=== PATIENT | male | born 1950 | race African-American/Black ===

== ENCOUNTER 2018-02-06 11:58 | Observation (INO) ==
[2018-02-06] MEDS ORDERED: NITROGLYCERIN 2% OINT 1 INCH/GM PACK TOP STA (12:19)
[2018-02-06] MEDS ORDERED: ENOXAPARIN 100 MG/ML SYRINGE SUBCUT STA (12:19)
[2018-02-06 12:42] LABS: Basophils # 0.1 10*3/uL (0.0-0.2); Basophils % 0.6 % (0.0-0.8); Eosinophils # 0.2 10*3/uL (0.0-0.87); Eosinophils % 2.2 % (0.00-10.9); Hematocrit 41.7 VOL% (42.0-52.0); Hemoglobin 14.3 GM/DL (14.0-18.0); Immature Granulocytes % 0.3 %; Immature Granulocytes Absolute 0.03 #; Lymphocytes # 1.7 10*3/uL (1.4-4.0); Lymphocytes % 18.6 % (21.2-54.2); Mean Corpuscular HGB Conc 34.3 GM/DL (32-36); Mean Corpuscular Hemoglobin 33 PG (27-34); Mean Corpuscular Volume 95.6 FL (87-102); Mean Platelet Volume 9.9 FL (9.6-12.0); Monocytes # 0.5 10*3/uL (0.11-0.8); Monocytes % 5.4 % (1.7-12.7); Neutrophils # 6.8 10*3/uL (1.4-7.4); Neutrophils % 72.9 % (38.7-73.9); Platelet Count 223 T/CUMM (130-400); Red Blood Count 4.36 MC/CUMM (3.8-5.5); Red Cell Distribution Width 12.1 % (9.3-17.3); White Blood Count 9.3 T/CUMM (4-12)
[2018-02-06 12:50] LABS: PT Patient Result 10.8 SECS; Partial Thromboplastin Time 28.2 SECS (0-40)
[2018-02-06 13:04] LABS: Alanine Aminotransferase 24 U/L (16-61); Albumin 3.4 G/DL (3.4-5.0); Alkaline Phosphatase 116 U/L (45-117); Aspartate Amino Transferase 19 U/L (0-37); Blood Urea Nitrogen 12 MG/DL (7-18); Calcium 8.8 MG/DL (8.5-10.1); Glucose 144 MG/DL (74-106); Osmolality,Calculated 285.1 MOS/KG (273-304); Potassium 3.5 MMOL/L (3.5-5.1); Sodium 142 MMOL/L (136-145); Total Protein 6.7 G/DL (6.4-8.3)
[2018-02-06] MEDS ORDERED: FUROSEMIDE 40 MG/4 ML VIAL IV STA (14:01)
[2018-02-06] MEDS ORDERED: ONDANSETRON 4 MG/2 ML VIAL IV PRN (14:32)
[2018-02-06] MEDS ORDERED: INSULIN LISPRO 100 UNIT/ML SUBCUT ONE (14:32)
[2018-02-06] MEDS ORDERED: MORPHINE 4 MG/1 ML VIAL IV PRN (14:32)
[2018-02-06] MEDS ORDERED: ACETAMINOPHEN 325 MG TABLET PO PRN (14:32)
[2018-02-06] MEDS ORDERED: POLYETHYLENE GLYCOL POWDER 17 GM PACK PO PRN (14:38)
[2018-02-06] MEDS ORDERED: LUBIPROSTONE 24 MCG CAPSULE PO PRN (14:38)
[2018-02-06] MEDS ORDERED: oxyCODONE IR 5 MG TABLET PO PRN (14:38)
[2018-02-06] MEDS ORDERED: SODIUM CHLORIDE 0.45% 1,000 ML IV SCH (15:00)
[2018-02-06 15:09] LABS: Risk Ratio 1.81; VLDL CHOLESTEROL 7.4 MG/DL
[2018-02-06] MEDS ORDERED: NITROGLYCERIN SL 0.4 MG TABLET SL PRN (15:15)
[2018-02-06] MEDS ORDERED: INSULIN LISPRO 100 UNIT/ML SUBCUT PRN (15:53)
[2018-02-06] MEDS: FUROSEMIDE 40 MG/4 ML VIAL IV SCH (17:48)
[2018-02-06 19:06] LABS: Troponin I Only 0.025 NG/ML (0.00-0.045)
[2018-02-06] MEDS: ROSUVASTATIN 10 MG TABLET PO SCH (20:36)
[2018-02-06] MEDS: Cinnamon Bark [Cinnamon] 500 MG PO SCH (20:37)
[2018-02-06] MEDS: BRIMONIDINE 0.2% OPH SOLN 5 ML BOTTLE RIGHT EYE SCH (20:42)
[2018-02-07] MEDS ORDERED: MORPHINE 4 MG/1 ML VIAL IV PRN (06:51)
[2018-02-07 06:55] LABS: Basophils # 0.1 10*3/uL (0.0-0.2); Basophils % 0.6 % (0.0-0.8); Eosinophils # 0.3 10*3/uL (0.0-0.87); Hematocrit 41.1 VOL% (42.0-52.0); Hemoglobin 14.1 GM/DL (14.0-18.0); Immature Granulocytes % 0.2 %; Immature Granulocytes Absolute 0.02 #; Lymphocytes # 1.7 10*3/uL (1.4-4.0); Lymphocytes % 20.7 % (21.2-54.2); Mean Corpuscular HGB Conc 34.3 GM/DL (32-36); Mean Corpuscular Hemoglobin 33 PG (27-34); Mean Corpuscular Volume 95.8 FL (87-102); Mean Platelet Volume 9.9 FL (9.6-12.0); Monocytes # 0.5 10*3/uL (0.11-0.8); Monocytes % 6.3 % (1.7-12.7); Neutrophils # 5.7 10*3/uL (1.4-7.4); Neutrophils % 69.2 % (38.7-73.9); Platelet Count 204 T/CUMM (130-400); Red Blood Count 4.29 MC/CUMM (3.8-5.5); Red Cell Distribution Width 12.3 % (9.3-17.3); White Blood Count 8.3 T/CUMM (4-12)
[2018-02-07 07:18] LABS: Troponin I Only 0.037 NG/ML (0.00-0.045)
[2018-02-07 07:47] LABS: Albumin 3.4 G/DL (3.4-5.0); Bilirubin,Total 1.4 MG/DL (0.2-1.0); Calcium 8.4 MG/DL (8.5-10.1); Osmolality,Calculated 281.3 MOS/KG (273-304); Potassium 3.3 MMOL/L (3.5-5.1); Total Protein 6.5 G/DL (6.4-8.3)
[2018-02-07] MEDS: amLODIPine 10 MG TABLET PO SCH (08:31)
[2018-02-07] MEDS: PANTOPRAZOLE 40 MG TABLET PO SCH (08:31)
[2018-02-07] MEDS: ASPIRIN EC 81 MG TABLET PO SCH (08:32)
[2018-02-07] MEDS: TAMSULOSIN 0.4 MG CAPSULE PO SCH (08:32)
[2018-02-07] MEDS: LOSARTAN 25 MG TABLET PO SCH (08:32)
[2018-02-07] MEDS: ENOXAPARIN 40 MG/0.4 ML SYRINGE SUBCUT SCH (08:32)
[2018-02-07] MEDS: hydroCHLOROthiazide 12.5 MG CAPSULE PO SCH (08:32)
[2018-02-07] MEDS: BRIMONIDINE 0.2% OPH SOLN 5 ML BOTTLE RIGHT EYE SCH ×2 (08:34→20:34)
[2018-02-07] MEDS: TIMOLOL 0.5% OPH SOLN 5 ML BOTTLE RIGHT EYE SCH (08:34)
[2018-02-07] MEDS: Cinnamon Bark [Cinnamon] 500 MG PO SCH ×2 (08:34→20:34)
[2018-02-07] MEDS: FUROSEMIDE 40 MG/4 ML VIAL IV SCH ×2 (08:35→15:15)
[2018-02-07] MEDS ORDERED: DIAZEPAM 5 MG TABLET PO ONE (09:19)
[2018-02-07] MEDS ORDERED: POTASSIUM CHLORIDE RIDER 10 MEQ in PREMIX 1 EACH IV PRN (09:19)
[2018-02-07] MEDS ORDERED: MAGNESIUM SULF RIDER 2 GM in PREMIX 1 EACH IV PRN (09:19)
[2018-02-07] MEDS ORDERED: diphenhydrAMINE CAP 25 MG CAPSULE PO ONE (09:19)
[2018-02-07] MEDS ORDERED: SODIUM CHLORIDE 0.45% 1,000 ML IV SCH (09:30)
[2018-02-07] MEDS ORDERED: MIDAZOLAM 2 MG/2 ML VIAL ONE (10:23)
[2018-02-07] MEDS ORDERED: HYDROmorphone 2 MG/1 ML VIAL ONE (10:23)
[2018-02-07] MEDS ORDERED: NITROGLYCERIN 2% OINT 1 INCH/GM PACK TOP SCH (12:00)
[2018-02-07] MEDS: NITROGLYCERIN 2% OINT 1 INCH/GM PACK TOP SCH ×2 (12:32→17:03)
[2018-02-07] MEDS ORDERED: POTASSIUM CHLORIDE 20 MEQ TABLET PO ONE (15:22)
[2018-02-07] MEDS: ROSUVASTATIN 10 MG TABLET PO SCH (20:34)
[2018-02-08] MEDS: NITROGLYCERIN 2% OINT 1 INCH/GM PACK TOP SCH ×3 (01:19→12:14)
[2018-02-08 05:42] LABS: Basophils # 0.1 10*3/uL (0.0-0.2); Basophils % 0.6 % (0.0-0.8); Eosinophils # 0.2 10*3/uL (0.0-0.87); Eosinophils % 2.4 % (0.00-10.9); Hematocrit 41.8 VOL% (42.0-52.0); Hemoglobin 14.1 GM/DL (14.0-18.0); Immature Granulocytes % 0.3 %; Immature Granulocytes Absolute 0.03 #; Lymphocytes # 1.4 10*3/uL (1.4-4.0); Lymphocytes % 15.6 % (21.2-54.2); Mean Corpuscular HGB Conc 33.7 GM/DL (32-36); Mean Corpuscular Hemoglobin 32 PG (27-34); Mean Corpuscular Volume 95.4 FL (87-102); Mean Platelet Volume 10.2 FL (9.6-12.0); Monocytes # 0.7 10*3/uL (0.11-0.8); Monocytes % 7.2 % (1.7-12.7); Neutrophils # 6.7 10*3/uL (1.4-7.4); Neutrophils % 73.9 % (38.7-73.9); Platelet Count 214 T/CUMM (130-400); Red Blood Count 4.38 MC/CUMM (3.8-5.5); Red Cell Distribution Width 11.9 % (9.3-17.3)
[2018-02-08 06:14] LABS: Calcium 8.4 MG/DL (8.5-10.1); Osmolality,Calculated 286.1 MOS/KG (273-304); Potassium 3.4 MMOL/L (3.5-5.1)
[2018-02-08] MEDS: PANTOPRAZOLE 40 MG TABLET PO SCH (09:19)
[2018-02-08] MEDS: hydroCHLOROthiazide 12.5 MG CAPSULE PO SCH (09:19)
[2018-02-08] MEDS: LOSARTAN 25 MG TABLET PO SCH (09:19)
[2018-02-08] MEDS: TAMSULOSIN 0.4 MG CAPSULE PO SCH (09:19)
[2018-02-08] MEDS: ENOXAPARIN 40 MG/0.4 ML SYRINGE SUBCUT SCH (09:19)
[2018-02-08] MEDS: amLODIPine 10 MG TABLET PO SCH (09:19)
[2018-02-08] MEDS: ASPIRIN EC 81 MG TABLET PO SCH (09:19)
[2018-02-08] MEDS: BRIMONIDINE 0.2% OPH SOLN 5 ML BOTTLE RIGHT EYE SCH (09:20)
[2018-02-08] MEDS: FUROSEMIDE 40 MG/4 ML VIAL IV SCH ×2 (09:20→16:44)
[2018-02-08] MEDS: Cinnamon Bark [Cinnamon] 500 MG PO SCH (09:20)
[2018-02-08] MEDS: TIMOLOL 0.5% OPH SOLN 5 ML BOTTLE RIGHT EYE SCH (09:20)
[2018-02-08 12:04] VITALS: BP 135/86
== END 2018-02-08 17:09 | disposition home or self-care (01) ==
LOC: EDUNIT# → EDBD → N.ED 11:58 → N.EDINP 11:58 → SUATTDRO 14:01 → N.TELEN 15:23
PROVIDERS: ADMIT Internal Medicine; ATTEND Internal Medicine

== ENCOUNTER 2019-08-16 05:17 | Inpatient (IN) ==
[2019-08-16 06:26] LABS: Basophils # 0.1 10*3/uL (0.0-0.2); Basophils % 0.5 % (0.0-0.8); Eosinophils # 0.2 10*3/uL (0.0-0.87); Eosinophils % 1.9 % (0.00-10.9); Hemoglobin 13.3 GM/DL (14.0-18.0); Immature Granulocytes % 0.3 %; Immature Granulocytes Absolute 0.03 #; Lymphocytes % 9.4 % (21.2-54.2); Mean Corpuscular HGB Conc 34.1 GM/DL (32-36); Mean Corpuscular Volume 96.1 FL (87-102); Mean Platelet Volume 11.2 FL (9.6-12.0); Monocytes % 3.7 % (1.7-12.7); Neutrophils % 84.2 % (38.7-73.9); Platelet Count 177 T/CUMM (130-400); Red Blood Count 4.06 MC/CUMM (3.8-5.5); Red Cell Distribution Width 11.9 % (9.3-17.3); White Blood Count 10.3 T/CUMM (4-12)
[2019-08-16 06:39] LABS: Albumin 3.7 G/DL (3.4-5.0); Bilirubin,Total 1.2 MG/DL (0.2-1.0); Osmolality,Calculated 282.4 MOS/KG (273-304); Total Protein 6.9 G/DL (6.4-8.3)
[2019-08-16 06:47] LABS: Apearance,Urine CLEAR (Clear); Bilirubin,Urine Negative (Negative); Blood, Urine Negative (Negative); Glucose,Urine (UA) 50 mg/dL (Negative); Hyaline Casts,Urine 1 /LPF (0-3); Ketones,Urine Negative (Negative); Mucus,Urine Occasional /LPF (Occasional); Nitrite,Urine Negative (Negative); Protein,Urine >=500 MG/DL; RBC,Urine 2 /HPF (0-4); Urine Color Yellow (Yellow); Urine Specific Gravity 1.018 (1.001-1.035); WBC,Urine 1 /HPF (0-6)
[2019-08-16] MEDS ORDERED: FUROSEMIDE 40 MG/4 ML VIAL IV STA (09:11)
[2019-08-16] MEDS ORDERED: ACETAMINOPHEN 325 MG TABLET PO PRN ×2 (10:30→10:35)
[2019-08-16] MEDS ORDERED: ONDANSETRON 4 MG/2 ML VIAL IV PRN (10:30)
[2019-08-16] MEDS ORDERED: hydrALAZINE 20 MG/1 ML VIAL IV PRN (13:04)
[2019-08-16] MEDS: FUROSEMIDE 40 MG/4 ML VIAL IV SCH (16:30)
[2019-08-16] MEDS: SACUBITRIL/VALSARTAN 49-51 MG TABLET PO SCH (18:07)
[2019-08-16] MEDS: carvediloL 25 MG TABLET PO SCH (18:07)
[2019-08-16] MEDS: ENOXAPARIN 40 MG/0.4 ML SYRINGE SUBCUT SCH (20:38)
[2019-08-16] MEDS: DIFLUPREDNATE 0.05% OPH EMUL 5 ML BOTTLE RIGHT EYE SCH (20:38)
[2019-08-16] MEDS: BRIMONIDINE 0.2% OPH SOLN 5 ML BOTTLE RIGHT EYE SCH (20:38)
[2019-08-16] MEDS ORDERED: carvediloL 12.5 MG TABLET PO SCH (21:00)
[2019-08-17 04:54] LABS: Basophils % 0.4 % (0.0-0.8); Eosinophils # 0.2 10*3/uL (0.0-0.87); Hematocrit 40.1 VOL% (42.0-52.0); Hemoglobin 13.7 GM/DL (14.0-18.0); Immature Granulocytes % 0.3 %; Immature Granulocytes Absolute 0.02 #; Lymphocytes # 1.5 10*3/uL (1.4-4.0); Mean Corpuscular HGB Conc 34.2 GM/DL (32-36); Mean Platelet Volume 10.9 FL (9.6-12.0); Monocytes % 6.9 % (1.7-12.7); Neutrophils % 68.4 % (38.7-73.9); Platelet Count 171 T/CUMM (130-400); Red Blood Count 4.22 MC/CUMM (3.8-5.5); Red Cell Distribution Width 11.7 % (9.3-17.3); White Blood Count 7.1 T/CUMM (4-12)
[2019-08-17 05:12] LABS: Calcium 8.9 MG/DL (8.5-10.1)
[2019-08-17] MEDS: FUROSEMIDE 40 MG/4 ML VIAL IV SCH ×2 (08:39→16:20)
[2019-08-17] MEDS: PANTOPRAZOLE 40 MG TABLET PO SCH (08:40)
[2019-08-17] MEDS: ASPIRIN EC 81 MG TABLET PO SCH (08:40)
[2019-08-17] MEDS: SACUBITRIL/VALSARTAN 49-51 MG TABLET PO SCH ×2 (08:40→21:32)
[2019-08-17] MEDS: TAMSULOSIN 0.4 MG CAPSULE PO SCH (08:40)
[2019-08-17] MEDS: BRIMONIDINE 0.2% OPH SOLN 5 ML BOTTLE RIGHT EYE SCH ×2 (08:41→21:33)
[2019-08-17] MEDS: DIFLUPREDNATE 0.05% OPH EMUL 5 ML BOTTLE RIGHT EYE SCH ×2 (08:41→21:33)
[2019-08-17] MEDS: TIMOLOL 0.5% OPH SOLN 5 ML BOTTLE RIGHT EYE SCH (08:43)
[2019-08-17] MEDS: carvediloL 25 MG TABLET PO SCH ×2 (08:43→21:32)
[2019-08-17] MEDS ORDERED: PANTOPRAZOLE 40 MG TABLET PO SCH (09:00)
[2019-08-17] MEDS: ENOXAPARIN 40 MG/0.4 ML SYRINGE SUBCUT SCH (21:32)
[2019-08-18 06:02] LABS: Osmolality,Calculated 282.4 MOS/KG (273-304)
[2019-08-18] MEDS: FUROSEMIDE 40 MG/4 ML VIAL IV SCH ×2 (10:10→16:56)
[2019-08-18] MEDS: TAMSULOSIN 0.4 MG CAPSULE PO SCH (10:11)
[2019-08-18] MEDS: PANTOPRAZOLE 40 MG TABLET PO SCH (10:11)
[2019-08-18] MEDS: ASPIRIN EC 81 MG TABLET PO SCH (10:11)
[2019-08-18] MEDS: TIMOLOL 0.5% OPH SOLN 5 ML BOTTLE RIGHT EYE SCH (10:15)
[2019-08-18] MEDS: BRIMONIDINE 0.2% OPH SOLN 5 ML BOTTLE RIGHT EYE SCH ×2 (10:15→21:32)
[2019-08-18] MEDS: DIFLUPREDNATE 0.05% OPH EMUL 5 ML BOTTLE RIGHT EYE SCH ×2 (10:15→21:32)
[2019-08-18] MEDS: carvediloL 25 MG TABLET PO SCH ×2 (10:15→21:34)
[2019-08-18] MEDS: SACUBITRIL/VALSARTAN 49-51 MG TABLET PO SCH ×2 (11:50→21:34)
[2019-08-18] MEDS: hydrALAZINE 25 MG TABLET PO SCH ×2 (11:50→21:33)
[2019-08-18] MEDS: ENOXAPARIN 40 MG/0.4 ML SYRINGE SUBCUT SCH (21:32)
[2019-08-19 06:02] LABS: Basophils # 0.1 10*3/uL (0.0-0.2); Basophils % 0.6 % (0.0-0.8); Eosinophils # 0.3 10*3/uL (0.0-0.87); Eosinophils % 3.5 % (0.00-10.9); Hematocrit 42.3 VOL% (42.0-52.0); Hemoglobin 14.7 GM/DL (14.0-18.0); Immature Granulocytes Absolute 0.08 #; Lymphocytes # 1.6 10*3/uL (1.4-4.0); Lymphocytes % 19.8 % (21.2-54.2); Mean Corpuscular HGB Conc 34.8 GM/DL (32-36); Mean Corpuscular Volume 94.2 FL (87-102); Mean Platelet Volume 11.2 FL (9.6-12.0); Monocytes % 7.2 % (1.7-12.7); Neutrophils % 67.9 % (38.7-73.9); Platelet Count 197 T/CUMM (130-400); Red Blood Count 4.49 MC/CUMM (3.8-5.5); Red Cell Distribution Width 11.8 % (9.3-17.3); White Blood Count 7.8 T/CUMM (4-12)
[2019-08-19 06:21] LABS: Calcium 8.9 MG/DL (8.5-10.1); Osmolality,Calculated 279.7 MOS/KG (273-304)
[2019-08-19] MEDS: BRIMONIDINE 0.2% OPH SOLN 5 ML BOTTLE RIGHT EYE SCH (09:10)
[2019-08-19] MEDS: carvediloL 25 MG TABLET PO SCH (09:10)
[2019-08-19] MEDS: FUROSEMIDE 40 MG/4 ML VIAL IV SCH (09:10)
[2019-08-19] MEDS: ASPIRIN EC 81 MG TABLET PO SCH (09:10)
[2019-08-19] MEDS: TAMSULOSIN 0.4 MG CAPSULE PO SCH (09:10)
[2019-08-19] MEDS: DIFLUPREDNATE 0.05% OPH EMUL 5 ML BOTTLE RIGHT EYE SCH (09:10)
[2019-08-19] MEDS: PANTOPRAZOLE 40 MG TABLET PO SCH (09:10)
[2019-08-19] MEDS: hydrALAZINE 25 MG TABLET PO SCH (09:10)
[2019-08-19] MEDS: TIMOLOL 0.5% OPH SOLN 5 ML BOTTLE RIGHT EYE SCH (09:10)
[2019-08-19] MEDS: SACUBITRIL/VALSARTAN 49-51 MG TABLET PO SCH (11:46)
[2019-08-19] MEDS ORDERED: FUROSEMIDE 40 MG TABLET PO SCH (16:00)
[2019-08-19 16:16] VITALS: BP 138/80
== END 2019-08-19 17:00 | disposition home or self-care (01) | DRG 293 ==
LOC: EDUNIT# → EDBD → N.EDINP 05:17 → N.ED 05:17 → SUATTDRO 10:30 → N.TELES 11:48
PROVIDERS: ADMIT Internal Medicine; ATTEND Internal Medicine